=== PATIENT | female | born 1950 | race Caucasian/White ===

== ENCOUNTER 2016-10-30 16:04 | Emergency (ER) | payer OTHER ==
[~2016-10-30 16:04] MED LIST: ACET500CAP PO; AMBIEN CR12.5 MG PO; ASA5GR PO; ASAB PO; CELEXA20 PO; CELEXA40 MG PO; CIP5 PO; COUMADIN4 MG PO; CYANO1000T PO; CYMBALTA60 PO; DEMEROL100 MG PO; DILAUDID PO; FORTAMET500 MG PO; GINKO BILOBA PO; GLUCPH PO; HYZAAR 100/25 T1 TAB PO; KLOR-CON M2020 MEQ PO; LIOR10 PO; MAGONATE PO; MELATONIN CR3 MG PO; METHOC750B PO; MULTIVITAMI1 PO; NEXIUM40 PO; NIACIN100 PO; NITROSTAT0.4 MG SL; ORAZINC110 MG PO; OXYCONTIN PO; SEROQUEL XR150 MG PO; SEROQUEL300 MG PO; SEROQUEL400 MG PO; SIN25 PO; T PO; TRAZODONE300 MG PO; VIST50 PO; VITAMIN D31000 UNIT PO; ZOFRAN8 PO
== END 2016-10-30 17:26 | disposition home or self-care (01) ==
LOC: ER 16:04
DX: L03.211 Cellulitis of face (principal); I10 Essential (primary) hypertension; G47.30 Sleep apnea, unspecified; F32.9 Major depressive disorder, single episode, unspecified; F41.9 Anxiety disorder, unspecified; D64.9 Anemia, unspecified; Z88.8 Allergy status to other drugs, medicaments and biological substances; Z79.82 Long term (current) use of aspirin; Z79.899 Other long term (current) drug therapy
CPT/HCPCS: 99282